=== PATIENT | male | born 1975 | race Caucasian/White ===

== ENCOUNTER 2017-04-12 13:37 | Emergency (ER) | payer OTHER ==
[~2017-04-12] VITALS: Ht 188 cm; Wt 110.7 kg
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
[2017-04-12 15:26] VITALS: BP 145/90
== END 2017-04-12 15:25 | disposition home or self-care (01) ==
LOC: ER 13:37
DX: M62.830 Muscle spasm of back (principal)
CPT/HCPCS: 96372; 99283-25